=== PATIENT | male | born 1985 | race Caucasian/White ===

== ENCOUNTER 2023-09-13 12:58 | Emergency (ER) | payer BC, SELFPAY ==
[2023-09-13 13:10] VITALS: BP 126/79; PULSE 68; RESP 21; TEMP 36.7; O2SAT 98; BMI 27.5
--- NOTE | 2023-09-13 13:24 | ED_ITS ---
Discharge Plan Disposition Patient Disposition: Home, Self-Care Condition: Good Prescriptions Prescriptions: New valacyclovir 1 gram tablet 1,000 mg PO Q8H 7 Days Qty: 21 0RF Referrals Follow up/Referrals: Shraddha Smith [Primary Care Provider] - See instructions Activity Restrictions/Add. Instructions Additional Instructions/Restrictions: Take medication as prescribed Oatmeal baths may help with clearing of rash Follow up with your Family Doctor if no improvement Clinical Impressions Clinical Impression: Shingles Instructions Patient Instructions: DI for Shingles, Shingles Discharge ED Provider: Idalia Thompson [facility] General Stated complaint: Rash on back Mode of Arrival: Ambulatory Source of Information: Patient Limitations: No Limitations Time Seen by Provider: 09/13/23 13:24 Description of Symptoms (Recalled from Triage Doc. by RN): PATIENT C/O BUMPY, ITCHY RASH TO RIGHT SHOULDER BLADE THAT HE NOTICED YESTERDAY HEENT Symptoms (Recalled from RN notes): No Resp Symptoms (Recalled from RN notes): No Skin Symptoms (Recalled from RN notes): Yes MS Symptoms (Recalled from RN notes): No Functional Status (Recalled from RN notes): WNL History of Present Illness Provider Complaint: Patient states that he noticed a bumpy itchy area on his right shoulder yesterday that has continued to get worse today States looks and feels like it did when he had shingles a few years back so he came in to get checked Related Data Previous Rx's Medication Instructions Recorded valacyclovir 1 gram tablet 1,000 mg PO Q8H 7 days #21 tabs 09/13/23 Allergies Allergy/AdvReac Type Severity Reaction Status Date / Time No Known Allergies Allergy Verified 09/13/23 13:16 Worker's Comp Is this a Worker's Comp case?: No [facility] Disclaimer: The information contained in this section may have been updated after the patient was seen, as this information can be updated by other users. Medical History (Updated 09/13/23 @ 13:31 by Idalia Thompson APRN) No significant past medical history Social History Smoking Status: Unknown if ever smoked alcohol intake: never current occupational status: employed Travel in the last 8 weeks: None ROS Obtained: Yes All systems reviewed & no additional complaints except as documented and Yes Systems reviewed as appropriate & no additional complaints except as documented Constitutional Constitutional: Reports system reviewed and no additional complaints, except as documented and Reports as per HPI ENT Ears, Nose, Mouth, and Throat: Reports system reviewed and no additional complaints, except as documented and Reports as per HPI Cardiovascular Cardiovascular: Reports system reviewed and no additional complaints, except as documented and Reports as per HPI Respiratory Respiratory: Reports system reviewed and no additional complaints, except as documented and Reports as per HPI Integumentary/Breasts Skin/Breast: Reports system reviewed and no additional complaints, except as documented, Reports as per HPI and Reports rash Physical Exam General General appearance: alert and in no apparent distress ENT ENT exam: Present mucous membranes moist Respiratory Respiratory exam: Present normal lung sounds bilaterally; Absent respiratory distress or wheezes Cardiovascular Cardiovascular exam: Present regular rate, normal rhythm and normal heart sounds Neurological Exam Neurological exam: Present alert, oriented X3 and normal gait Skin Skin exam: Present rash (blister like rash noted on right shoulder area appears like shingles) Medical Decision Making Jewel Inquiry Pt receiving controlled substance: No Jewel was queried for this patient: No Vital Signs: 09/13/23 13:10 Temperature 98.1 F Temperature Source Oral Pulse Rate [Left Brachial] 68 Respiratory Rate 21 Blood Pressure [Left Arm] 126/79 Blood Pressure Mean [Left Arm] 94 Blood Pressure Source [Left Arm] Automatic Cuff Blood Pressure Position [Left Arm] Sitting 02 Sat by Pulse Oximetry 98 Oxygen Delivery Method Room Air
[2023-09-13 13:32] VITALS: BP 126/79; PULSE 68; RESP 21; TEMP 36.7; O2SAT 98
== END 2023-09-13 13:35 | disposition home or self-care (01) ==
PROVIDERS: Emergency Provider Nurse Practitioner; PCP Family Medicine
DX: B02.9 Zoster without complications (principal)
CPT/HCPCS: 99204; 99212; G0463

== ENCOUNTER 2023-09-24 17:28 | Emergency (ER) | payer BC, SELFPAY ==
--- OUTSIDE RECORDS SUMMARY | 2023-09-24 17:33 | XMS_ITS | Patient Health Record ---
Author Name Unknown Organization [facility] Address [address] [place] [address] Care Team Providers Care Police Detention Attendant Name Role Phone Rebeca [id number] Neema Unavailable Allergies No Known Allergies Reason For Referral No Information Medications Medication SIG (Take, Route, Frequency, Duration) Notes Start Date End Date Status Azithromycin 250 MG [address] day, then 1 tablet daily for 4 days orally once a day for 5 day(s) 06/28/2016 Not-Taki ng Medrol 4 MG 6 tab(s),5 tab(s),4 tab(s),3 tab(s),2 tab(s),1 tab(s) PO as directed for 6 days 06/28/2016 Not-Taking Fluticasone Propionate 50 MCG/ACT 1 spray in each nostril Nasally Once a day for 30 days 10/03/2022 Active Asuncion Allergy 180 MG 1 tablet Swallow whole with water; do not take with fruit juices. Orally Once a day Active Zoloft 25 MG 1 tab(s) orally once a day for 30 day(s) Not-Taking NexIUM 40 MG 1 capsule Orally Onc e a day Active Immunizations Vaccine Route Administration Date Status Comme nts z2022 FluBLOK Quad PFS (0.5m L Admin) 18 y/o & older Unknown 10/03/2022 Refused Social History Tobacco Use: Social History Observation Description Date Details (start date - stop date) Never Smoker NA - NA Tobacco Use NON BIOMETRIC Visit Question Answer Notes Are you a Never smoker Problems Problem Type SNOMED Code ICD Code Onset Dates Problem Status W/U Status Risk Notes Problem 40913675 Acute non-recurrent maxillary sinusitis (J01.00) Active confirmed Problem Overweight (898632671) Overweight (BMI 25.0-29.9) (E66.3) Active confirmed Vital Signs Temperature 97.5 degrees Fahrenheit 10/03/2022 Respiratory Rate 18 /min 10/03/2022 Blood pressure diastolic 72 mm Hg 10/03/2022 Height 068 in 10/03/2022 Blood pressure systolic 116 mm Hg 10/03/2022 Weight 0170 lbs 10/03/2022 BMI 25.85 kg/m2 10/03/2022 Encounters Encounter Location Date Provider Diagnosis [id number] [employer] [facility] [address] [place] [address] 10/03/2022 Neema Jose Acute non-recurrent maxillary sinusitis J01.00 and Overweight (BMI 25.0-29.9) E66.3 [id number] [employer] [facility] [address] [place] [address] 10/03/2022 Assessments Encounter Date Diagnosis (ICD Code) Assessment Notes Treatment Notes Treatment Clinical Notes 10/03/2022 Acute non-recurrent maxillary sinusitis (ICD-10 - J01.00) Acute Sinusitis: Care Instructions material was printed, Saline Nasal Washes: Care Instructions material was printed Visit summary given to and discussed with patient and/or parent who verbalizes understanding and agreement with plan of care Thank you for your visit. Please look for the satisfaction survey that you will receive via email. We look forward to receiving your feedback regarding your experience at [facility]. Complete the entire course of antibiotics as prescribed, even when symptoms have improved, to prevent a relapse of infection and the development of antibiotic resistance. Follow up in the clinic or with PCP as needed 10/03/2022 Overweight (BMI 25.0-29.9) (ICD-10 - E66.3) Learning About Obesity material was printed Continue healthy eating and exercise. [facility] via a telehealth visit at [email or web address] to help with dietary changes to lower BMI. 10/03/2022 Other amoxicillin and clavulanate potassium material was printed, fluticasone nasal material was printed Plan Of Treatment No Information Insurance Providers Payer Name Payer Address Payer Phone Subscriber Number Group Number Insured Name Patient Relationship to Insured Coverage Start Date Coverage End Date [facility] [address] [place] [address] [phone] [id number] Karthik Reyna Self - patient is the insured Medical (General) History Surgical History Surgery Date(Month/Year) [place] teeth extraction
[2023-09-24 17:40] VITALS: BP 135/85; PULSE 104; RESP 18; TEMP 36.8; O2SAT 95; BMI 27.3
--- NOTE | 2023-09-24 18:07 | ED_ITS ---
Discharge Plan Disposition Patient Disposition: Home, Self-Care Condition: Good Prescriptions Prescriptions: New benzonatate 100 mg capsule 100 mg PO TIDP PRN (Reason: Cough) Qty: 30 0RF methylprednisolone 4 mg Tablets,Dose Pack 4 mg PO DIRECTED 6 Days Qty: 21 0RF Rx Instructions: Take 1 pack as directed for 6 days amoxicillin-pot clavulanate 875-125 mg Tablet 1 tab PO Q12H Qty: 20 0RF guaifenesin [Mucinex] 600 mg tablet extended release 12hr 600 - 1,200 mg PO BIDP PRN (Reason: Congestion) Qty: 30 0RF No Action valacyclovir 1 gram tablet 1,000 mg PO Q8H 7 Days Qty: 21 0RF Referrals Follow up/Referrals: Shraddha Smith [Primary Care Provider] - See instructions Activity Restrictions/Add. Instructions Additional Instructions/Restrictions: Drink plenty of fluids. Make sure you get plenty of rest for the next several days. Take tylenol or ibuprofen for pain or fever. Take the medications as directed. Follow up with your regular doctor. GO TO THE ER FOR ANY WORSENING SYMPTOMS Don't start the oral steroids (medrol dose pack) until tomorrow since you had the shot here today. Clinical Impressions Clinical Impression: LLL pneumonia Instructions Patient Instructions: Pneumonia-Adult, Dexamethasone, Ceftriaxone Injection Discharge ED Provider: Sherman Canas [facility] General Stated complaint: chest congestion fever 101 cough Mode of Arrival: Ambulatory Source of Information: Patient Limitations: No Limitations Time Seen by Provider: 09/24/23 17:50 Description of Symptoms (Recalled from Triage Doc. by RN): Pt's symptoms are coughing, and chest congestion. HEENT Symptoms (Recalled from RN notes): Yes Resp Symptoms (Recalled from RN notes): No Skin Symptoms (Recalled from RN notes): No MS Symptoms (Recalled from RN notes): No Functional Status (Recalled from RN notes): n/a History of Present Illness Provider Complaint: He states that for the past 5 days he has had chest congestion, productive cough with yellowish sputum, low grade fever, and malaise. Related Data Previous Rx's Medication Instructions Recorded valacyclovir 1 gram tablet 1,000 mg PO Q8H 7 days #21 tabs 09/13/23 amoxicillin 875 mg-potassium 1 tab PO Q12H #20 tabs 09/24/23 clavulanate 125 mg tablet benzonatate 100 mg capsule 100 mg PO TIDP PRN Cough #30 caps 09/24/23 guaifenesin 600 mg tablet, 600 - 1,200 mg (1 - 2 x 600 mg) PO 09/24/23 extended release 12 hr (Mucinex) BIDP PRN Congestion #30 tabs methylprednisolone 4 mg tablets in 4 mg PO DIRECTED 6 days #21 tabs 09/24/23 a dose pack Allergies Allergy/AdvReac Type Severity Reaction Status Date / Time No Known Allergies Allergy Verified 09/13/23 13:16 Worker's Comp Is this a Worker's Comp case?: No [facility] Disclaimer: The information contained in this section may have been updated after the patient was seen, as this information can be updated by other users. Medical History (Updated 09/24/23 @ 19:11 by Sherman Canas APRN) No significant past medical history Social History (Updated 09/13/23 @ 13:31 by Idalia Thompson APRN) Smoking Status: Unknown if ever smoked alcohol intake: never current occupational status: employed Travel in the last 8 weeks: None ROS Obtained: Yes All systems reviewed & no additional complaints except as documented Constitutional Constitutional: Reports poor appetite Eyes Eyes: Reports system reviewed and no additional complaints, except as documented ENT Ears, Nose, Mouth, and Throat: Reports as per HPI Cardiovascular Cardiovascular: Reports system reviewed and no additional complaints, except as documented and Denies chest pain Respiratory Respiratory: Denies shortness of breath, Reports chest congestion, Reports cough, Denies stridor and Denies wheezing Gastrointestinal Gastrointestingal: Reports system reviewed and no additional complaints, except as documented; Denies abdominal pain, diarrhea or vomiting Musculoskeletal Musculoskeletal: Reports system reviewed and no additional complaints, except as documented and Denies arthralgias Integumentary/Breasts Skin/Breast: Reports system reviewed and no additional complaints, except as documented and Denies rash Neurologic Neurologic: Denies paresthesias Allergic/Immunologic Allergic/Immunologic: Denies wheezing Physical Exam General General appearance: alert and in no apparent distress Eye Eye exam: Present normal appearance, PERRL and EOMI ENT ENT exam: Present mucous membranes moist and normal external ear exam Expanded ENT Exam External ear exam: Present normal external inspection TM/Canal exam: Bilateral TM: erythema and bulging Nose exam: Absent sinus tenderness Nasal speculum exam: Bilateral: normal Mouth exam: Present normal external inspection; Absent drooling Teeth exam: Present normal inspection Throat exam: Present tonsillar erythema and tonsillomegaly Neck Neck exam: Present normal inspection, full ROM and trachea midline; Absent tenderness, lymphadenopathy or thyromegaly Chest Chest inspection: Present normal inspection and symmetric chest wall rise; Absent tenderness or rash Respiratory Respiratory exam: Present normal lung sounds bilaterally; Absent respiratory distress, wheezes, stridor or accessory muscle use Cardiovascular Cardiovascular exam: Present regular rate, normal rhythm and normal heart sounds Abdominal Exam Abdominal exam: Present soft; Absent distention, tenderness, guarding, rebound or rigidity Extremities Exam Extremities exam: Present normal inspection, full ROM and normal capillary refill; Absent tenderness or calf tenderness Back Exam Back exam: Present normal inspection and full ROM; Absent tenderness Neurological Exam Neurological exam: Present alert and oriented X3 Psychiatric Psychiatric exam: Present normal affect and normal mood Skin Skin exam: Present warm, dry, intact and normal color Lymphatic Lymphatic Findings: no adenopathy Medical Decision Making Medical Records Medical records reviewed: No I reviewed the patient's medical records. Jewel Inquiry Pt receiving controlled substance: No Vital Signs: 09/24/23 17:40 Temperature 98.2 F Temperature Source Oral Pulse Rate [Right Radial] 104 H Respiratory Rate 18 Blood Pressure [Right Arm] 135/85 Blood Pressure Mean [Right Arm] 101 Blood Pressure Source [Right Arm] Automatic Cuff Blood Pressure Position [Right Arm] Sitting 02 Sat by Pulse Oximetry 95 Oxygen Delivery Method Room Air Lab Data Lab results reviewed: Yes I reviewed the patient's lab results. Radiology Data #1: Image(s): Chest Image Reviewed: Yes I reviewed the patient's radiology image and Yes I have reviewed radiologist's interpretation Preliminary Findings: Abnormal Accession No. 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 Views: 2 views. COMPARISON: No relevant prior studies available. FINDINGS: Lungs: Left basilar opacities partially silhouette the diaphragm are favored to represent combination of atelectasis/pleural effusion/consolidation. Pleural spaces: See Lungs finding. Heart/Mediastinum: Unremarkable. No cardiomegaly. Bones/joints: Unremarkable. IMPRESSION: Left basilar opacities partially silhouette the diaphragm are favored to represent combination of atelectasis/pleural effusion/consolidation.
--- NOTE | 2023-09-24 18:25 | XR_ITS ---
PROCEDURE INFORMATION: Exam: XR Chest Exam date and time: 09/24/2023 6:24 PM Age: 37 years old Clinical indication: Cough; Additional info: Cough, congestion TECHNIQUE: Imaging protocol: Radiologic exam of the chest. Views: 2 views. COMPARISON: No relevant prior studies available. FINDINGS: Lungs: Left basilar opacities partially silhouette the diaphragm are favored to represent combination of atelectasis/pleural effusion/consolidation. Pleural spaces: See Lungs finding. Heart/Mediastinum: Unremarkable. No cardiomegaly. Bones/joints: Unremarkable. IMPRESSION: Left basilar opacities partially silhouette the diaphragm are favored to represent combination of atelectasis/pleural effusion/consolidation.
[2023-09-24] MEDS: DEXAMETHASONE 4MG/ML 1ML VIAL 8 MG IM (19:07)
[2023-09-24] MEDS: cefTRIAXone 1GM VIAL 1 GM IM (19:07)
[2023-09-24] MEDS: LIDOCAINE 1% 5ML PF VIAL IM (19:07)
[2023-09-24 19:26] LABS: Coronavirus 19, PCR Not Detected (NotDetected); Influenza A, PCR Not Detected (NotDetected); Influenza B, PCR Not Detected (NotDetected)
[2023-09-24 19:27] VITALS: BP 135/85; PULSE 94; RESP 18; TEMP 36.8; O2SAT 95
== END 2023-09-24 19:27 | disposition home or self-care (01) ==
PROVIDERS: Emergency Provider Nurse Practitioner Family; PCP Family Medicine
DX: J18.9 Pneumonia, unspecified organism (principal); R50.9 Fever, unspecified; R05.9 Cough, unspecified
CPT/HCPCS: 71046; 87636; 96372; 99212; 99214; G0463; J0696; J1100